=== PATIENT | male | born 1960 | race Hispanic/Latino ===

== ENCOUNTER 2017-05-12 08:32 | Day surgery (SDC) | payer BC ==
[~2017-05-12] VITALS: Ht 170.2 cm; Wt 82.9 kg
[~2017-05-12 08:32] MED LIST: ASPI-555 PO; ATOR10TA69 PO; GLIM4TAB3 PO; LOSA25TA21 PO; METF500T6 PO; SODIUM CHLORIDE 0.9% 1000ML 1,000 ML IV ONE
[2017-05-12 08:53] VITALS: BP 120/82
[2017-05-12] MEDS ORDERED: PROPOFOL 10 MG/ML 20ML VIAL IV ONE (10:21)
[2017-05-12 10:37] VITALS: BP 88/55
== END 2017-05-12 11:10 | disposition home or self-care (01) ==
LOC: DAH 08:32
PROVIDERS: ATTEND Internal Medicine Gastroenterology
DX: Z12.11 Encounter for screening for malignant neoplasm of colon (principal); Z68.30 Body mass index [BMI] 30.0-30.9, adult; Z90.49 Acquired absence of other specified parts of digestive tract; Z98.890 Other specified postprocedural states; Z79.84 Long term (current) use of oral hypoglycemic drugs; Z79.899 Other long term (current) drug therapy
CPT/HCPCS: 45378; 82948 ×2; A4606; J2704; J7030

== ENCOUNTER 2022-10-06 21:38 | Emergency (ER) | payer BC ==
[~2022-10-06] VITALS: Ht 167.6 cm; Wt 71.2 kg
[~2022-10-06 21:38] MED LIST changes: -ASPI-555 PO; +ASPI-556 PO; -GLIM4TAB3 PO; +GLIM4TAB36 PO; -LOSA25TA21 PO; +LOSA25TA41 PO; +METF-444 PO; -METF500T6 PO; -SODIUM CHLORIDE 0.9% 1000ML 1,000 ML IV ONE
[2022-10-07 00:14] LABS: BASOPHILS % (AUTO) 0.3 % (0.0-5.0); EOSINOPHILS % (AUTO) 0.1 % (0.0-8.0); HEMATOCRIT 42.8 % (42-54); LYMPHOCYTES % (AUTO) 13.3 % (21.0-51.0); MEAN CORPUSCULAR HGB CONC 33.6 g/dL (32.0-36.0); MEAN CORPUSCULAR VOLUME 89.2 fL (79-99); MONOCYTES % (AUTO) 10.8 % (3.0-13.0); NEUTROPHILS % (AUTO) 74.5 % (40.0-77.0); PLATELET COUNT (AUTO) 212 K/uL (130-400); RED CELL DISTRIBUTION WIDTH 12.8 % (11.0-15.5); WHITE BLOOD COUNT (AUTO) 21.9 K/uL (4.8-10.8)
[2022-10-07 00:23] LABS: CREATININE 0.9 mg/dL (0.5-1.5); POTASSIUM 4.6 mmol/L (3.5-5.1)
[2022-10-07 00:28] LABS: ALBUMIN 3.4 g/dL (3.5-5.0)
[2022-10-07 00:46] LABS: APPEARANCE,URINE CLOUDY (CLEAR); BILIRUBIN,URINE NEGATIVE (NEGATIVE); COLOR,URINE YELLOW (YELLOW); GLUCOSE, URINE (UA) >=1000 mg/dL (NEGATIVE); KETONES,URINE >=80 mg/dL (NEGATIVE); LEUKOCYTE ESTERASE ,URINE 500 Leu/uL (NEGATIVE); NITRATE,URINE 2+ (NEGATIVE); OCCULT BLOOD,URINE LARGE (NEGATIVE); PROTEIN,URINE 100 mg/dL (NEGATIVE); UROBILINOGEN,URINE 0.2 mg/dL (0.2-1.0)
[2022-10-07 00:49] LABS: RBC,URINE TNTC /HPF (0-1); SQUAMOUS EPITHELIAL CELL,UR FEW /HPF (0-2); WBC,URINE TNTC /HPF (0-1)
[2022-10-07] MEDS ORDERED: 0.9%NACL 1000ML 1,000 ML IV ONE (02:30)
[2022-10-07] MEDS ORDERED: CEFTRIAXONE 1G VIAL IVPB ONE (02:30)
[2022-10-07] MEDS ORDERED: CEPH500B PO (04:02)
[2022-10-07 04:12] VITALS: BP 121/72
== END 2022-10-07 04:13 | disposition home or self-care (01) ==
LOC: EDH 21:38
DX: N39.0 Urinary tract infection, site not specified (principal); E11.9 Type 2 diabetes mellitus without complications; E78.00 Pure hypercholesterolemia, unspecified; I10 Essential (primary) hypertension; Z79.82 Long term (current) use of aspirin; Z79.84 Long term (current) use of oral hypoglycemic drugs; Z79.899 Other long term (current) drug therapy
CPT/HCPCS: 99284; 80053; 85025; 87040 ×2; 87077; 87088; 87186; 83605; 81001; 36415; 96374; J7030; J0696

== ENCOUNTER → 2022-12-18 | Outpatient (CLI) | payer BC ==
[~2022-12-18] MED LIST changes: +CEPH500B PO
[2022-12-18 12:53] LABS: ALBUMIN 3.9 g/dL (3.5-5.0); BILIRUBIN,TOTAL 0.4 mg/dL (0.2-1.0); CREATININE 0.7 mg/dL (0.5-1.5); TOTAL PROTEIN, SERUM 7.3 g/dL (6.0-8.3)
== END | disposition home or self-care (01) ==
LOC: LAB 08:48
PROVIDERS: ATTEND Internal Medicine Cardiovascular Disease
DX: I25.10 Atherosclerotic heart disease of native coronary artery without angina pectoris (principal); E78.2 Mixed hyperlipidemia
CPT/HCPCS: 36415; 80053; 80061

== ENCOUNTER → 2023-09-23 | Outpatient (CLI) | payer BC ==
[~2023-09-23] MED LIST changes: +ASPI-1005 PO; -ASPI-556 PO; -ATOR10TA69 PO; +ATOR40TA69 PO; -CEPH500B PO; +EMPA25TA PO; -GLIM4TAB36 PO; +INSU3INS3 SQ; +INSU500I SQ; -LOSA25TA41 PO; -METF-444 PO; +METO25 PO; +NITR0.4T50 SL; +ROSU20TA73 PO; +TAMS-1 PO
[2023-09-23 09:29] LABS: ALBUMIN 3.9 g/dL (3.5-5.0); BILIRUBIN,TOTAL 0.5 mg/dL (0.2-1.0); CREATININE 0.9 mg/dL (0.5-1.3); POTASSIUM 4.2 mmol/L (3.5-5.1); TOTAL PROTEIN, SERUM 7.7 g/dL (6.0-8.3)
== END | disposition home or self-care (01) ==
LOC: LAB 08:25
PROVIDERS: ATTEND Internal Medicine Cardiovascular Disease
DX: E78.2 Mixed hyperlipidemia (principal)
CPT/HCPCS: 36415; 80053; 80061